=== PATIENT | male | born 1935 | race Caucasian/White ===

== ENCOUNTER 2017-03-20 14:09 | Observation (INO) | payer OTHER ==
[2017-03-20 14:38] VITALS: BMI 25.0
--- NOTE | 2017-03-20 16:02 | PDOC ---
History of Present Illness - General Chief Complaint: Syncope/Near Syncope Stated Complaint: SYNCOPY Time Seen by Provider: 03/20/17 15:05 History Source: Patient Exam Limitations: No Limitations - History of Present Illness Initial Comments: 03/20/17 16:00 81-year-old male sent in from transit authority police officer for evaluation of syncopal episode. As per patient Sunday night he got up to go to the bathroom and on his way back he is unsure what happened but found himself on the floor and when he awoke at an unknown time was unable to get up for approximately 2 hours. Patient states since he had no injury did not follow-up with his PCP noted to be go to a nearby ER. Patient today had went to his primary care physician who sent him to the transit authority police officer who then sent into the ER since patient is also on eliquis and has obvious facial injury. Patient currently has no complaints of headache, dizziness, visual changes, neck pain, chest pain, shortness of breath, abdominal pain, nausea or weakness. Presenting Symptoms: Dizziness, Syncope Timing/Duration: reports: resolved prior to arrival Associated Symptoms: Yes: Dizziness, Syncope Past History - Past Medical History Home Medications: Ambulatory Orders Apixaban [Eliquis] 5 mg PO DAILY 03/20/17 Atorvastatin Ca [Lipitor] 40 mg PO HS 03/20/17 Cholecalciferol (Vitamin D3) [Vitamin D3] 1,000 unit PO DAILY 03/20/17 Losartan Potassium [Cozaar] 100 mg PO DAILY 03/20/17 Metoprolol Tartrate 50 mg PO DAILY 03/20/17 HTN: Yes Hypercholesterolemia: Yes Other medical history: alcohol abuse/PAD - Immunization History Immunization Up to Date: Yes - Psycho/Social/Smoking Cessation Hx Suicidal Ideation: No Smoking History: Current every day smoker Number of Cigarettes Smoked Daily: 20 Information on smoking cessation initiated: No Hx Alcohol Use: Yes (4 daily) Substance Use Type: Alcohol Patient Lives Alone: Yes Lives with/in: lives alone Review of Systems - Review of Systems Able to Perform ROS?: Yes Constitutional: No: Symptoms Reported HEENTM: No: Symptoms Reported Respiratory: No: Symptoms reported Cardiac (ROS): Yes: Lightheadedness, Syncope ABD/GI: No: Symptoms Reported : No: Symptoms Reported Musculoskeletal: No: Symptoms Reported Integumentary: No: Symptoms Reported Neurological: Yes: Dizziness Endocrine: No: Symptoms Reported Hematologic/Lymphatic: Yes: Easy Bleeding *Physical Exam - Vital Signs Last Vital Signs Temp Pulse Resp BP Pulse Ox 98.1 F 64 18 162/84 98 03/20/17 14:29 03/20/17 14:29 03/20/17 14:29 03/20/17 14:29 03/20/17 14:29 - Physical Exam General Appearance: Yes: Nourished, Appropriately Dressed. No: Apparent Distress HEENT: positive: EOMI, RACHAEL (3 mm effie), TMs Normal, Pharynx Normal. negative: Pale Conjunctivae Neck: positive: Supple. negative: Tender, Decreased range of motion Respiratory/Chest: positive: Lungs Clear, Normal Breath Sounds. negative: Respiratory Distress, Accessory Muscle Use Cardiovascular: positive: Regular Rhythm, Regular Rate. negative: Murmur Gastrointestinal/Abdominal: positive: Soft. negative: Tenderness Musculoskeletal: negative: CVA Tenderness, Vertebral Tenderness Extremity: positive: Normal Capillary Refill. negative: Pedal Edema Integumentary: positive: Warm, Ecchymosis (mild without edema to the orbital floor of the right eye. ) Neurologic: positive: Normal Mood/Affect, Motor Strength 5/5 (ambulatory) Heart Score/ECG Review - ECG Intrepretation Comment:: 03/20/17 17:11 A. fib at 70 ED Treatment Course - LABORATORY CBC & Chemistry Diagram: 03/20/17 15:51 03/20/17 15:51 - ADDITIONAL ORDERS Additional order review: Laboratory Results 03/20/17 03/20/17 03/20/17 16:45 15:51 15:51 INR Sodium 141 Potassium 5.2 H Chloride 104 Carbon Dioxide 27 Anion Gap 10 BUN 17 D Creatinine 1.4 H D Creat Clearance w eGFR 48.89 Random Glucose 97 Calcium 10.0 Total Bilirubin 0.5 AST 30 D ALT 26 D Alkaline Phosphatase 77 Creatine Kinase 139 Troponin I < 0.02 Total Protein 8.2 Albumin 4.4 Urine Color Ltyellow Urine Appearance Clear Urine pH 7.0 Ur Specific [place] 1.012 Urine Protein Negative Urine Glucose (UA) 2+ H Urine Ketones Negative Urine Blood Negative Urine Nitrite Negative Urine Bilirubin Negative Urine Urobilinogen Negative Ur Leukocyte Esterase Negative Blood Type A POSITIVE Antibody Screen Negative 03/20/17 15:51 INR 1.03 Sodium Potassium Chloride Carbon Dioxide Anion Gap BUN Creatinine Creat Clearance w eGFR Random Glucose Calcium Total Bilirubin AST ALT Alkaline Phosphatase Creatine Kinase Troponin I Total Protein Albumin Urine Color Urine Appearance Urine pH Ur Specific [place] Urine Protein Urine Glucose (UA) Urine Ketones Urine Blood Urine Nitrite Urine Bilirubin Urine Urobilinogen Ur Leukocyte Esterase Blood Type Antibody Screen 03/20/17 15:51 RBC 4.27 MCV 93.5 MCHC 33.5 RDW 13.8 MPV 8.8 Neutrophils % 70.6 Lymphocytes % 16.5 Monocytes % 8.1 Eosinophils % 3.7 Basophils % 1.1 - RADIOLOGY Radiology Studies Ordered: Category Date Time Status FACIAL BONES CT W/O CONTRAST [CT] Stat CT Scan 03/20/17 15:[address] WITHOUT CONTRAST [CT] Stat CT Scan 03/20/17 15:35 Completed CHEST X-RAY PORTABLE* [RAD] Stat Radiology 03/20/17 15:36 Taken Medical Decision Making - Medical Decision Making 03/20/17 16:12 Status post syncopal episode which he attributes to his hydrochlorothiazide which he should not be taking but still continued to take it by accident once in a while and states is also an eliquis and has history of vertigo and takes meclizine as needed. Patient concerning for right orbital floor fracture versus intracranial bleed. Patient also ordered for cardiac workup secondary to syncopal episode in length that he was on the floor 2 nights ago. 03/20/17 16:56 CT shows no evidence of acute intracranial pathology with multiple chronic cerebral infarcts . Facial CT shows a nondisplaced subtle horizontal fracture along the posterior lateral wall of the right maxillary sinus with a small amount of hyperdense material suggestive of blood seen within the right maxillary sinus intermixed with incidental inflammatory mucosal thickening. Patient will be admitted to telemetry and will consult Dr. monreal and patient's PCP. 03/20/17 16:56 Laboratory Tests 03/20/17 03/20/17 15:51 15:51 Sodium 141 Potassium 5.2 H Chloride 104 Carbon Dioxide 27 Anion Gap 10 BUN 17 D Creatinine 1.4 H D Random Glucose 97 Calcium 10.0 Total Bilirubin 0.5 AST 30 D ALT 26 D Creatine Kinase 139 Troponin I < 0.02 Blood Type A POSITIVE 03/20/17 18:[address] Monreal and states patient has been doubled up on his hydrochlorothiazide as prescribed by his [facility] and himself. He states to admit to telemetry secondary to head injury currently on eliquis. Case also discussed with hospitalist Dr. bingham who accepted to service. *DC/Admit/Observation/Transfer Diagnosis at time of Disposition: On anticoagulant therapy Injury of head Qualifiers: Encounter type: initial encounter Qualified Code(s): S09.90XA - Unspecified injury of head, initial encounter - Discharge Dispostion Admit: Yes
[2017-03-20 16:29] LABS: BASOPHIL 1.1 % (0-2.0); EOSINOPHIL 3.7 % (0-4.5); MCH 31.3 pg (25.7-33.7); MCHC 33.5 g/dl (32.0-35.9); MEAN CELL VOLUME 93.5 fl (80-96); MEAN PLT VOLUME 8.8 fl (7.5-11.1); NEUTROPHILS 70.6 % (42.8-82.8); PLATELET COUNT 253 K/MM3 (134-434); RDW 13.8 % (11.9-15.9); WHITE BLOOD COUNT 10.1 K/mm3 (4.0-10.0)
[2017-03-20 16:34] LABS: ALBUMIN 4.4 g/dl (3.4-5.0); ANION GAP 10 (8-16); BILIRUBIN,TOTAL 0.5 mg/dL (0.2-1.0); CO2 27 mmol/L (21-32); COCKROFT - GAULT 41.17; CREATININE 1.4 mg/dL (0.7-1.3); GLUCOSE,RANDOM 97 mg/dL (74-106); SGPT/ALT 26 U/L (12-78); TOT PROT 8.2 g/dl (6.4-8.2)
[2017-03-20 16:36] LABS: ALK PHOS 77 U/L (45-117); TROPONIN I < 0.02 ng/ml (0.00-0.05)
[2017-03-20 16:53] LABS: SGOT/AST 30 U/L (15-37)
[2017-03-20 17:01] LABS: INR 1.03 (0.82-1.09); PROTHROMBIN TIME (PATIENT) 11.3 SEC (9.98-11.88)
[2017-03-20 17:21] LABS: URINE APPEARANCE CLEAR; URINE BILIRUBIN NEGATIVE (NEGATIVE); URINE BLOOD NEGATIVE (NEGATIVE); URINE COLOR LTYELLOW; URINE GLUCOSE (UA) 2+ (NEGATIVE); URINE KETONE NEGATIVE (NEGATIVE); URINE LEUK ESTERASE NEGATIVE (NEGATIVE); URINE NITRITE NEGATIVE (NEGATIVE); URINE PROTEIN NEGATIVE (NEGATIVE); URINE UROBILINOGEN NEGATIVE E.U./dl (0.2-1.0)
--- NOTE | 2017-03-20 19:38 | HP ---
CHIEF COMPLAINT: syncope PCP: [facility] Running Instructor: Dr. Monreal HISTORY OF PRESENT ILLNESS: 81 yr old man with hx of afib(on eliquis), HTN, HLD, hx of stroke, current smoker/ETOH abuse referred by for unwitnessed syncope on Sunday. Patient lives alone and recalls entertaining guests and escorting them out of his apartment around 5pm, next thing he remembers is waking up in the bathroom with blood covering his face. He felt dizzy when he first woke up, he made it to the living room and stayed on the couch for several hours, he notes it was sunday morning at this time. He saw PCP this morning who told him to see Dr. Monreal, Dr. Monreal reviewed his medications and found he was prescribed the same anti-HTN medications by two physicians and Mr. Duran was taking both. He has been able to eat/drink/breathe without difficulty since waking up sunday. denies falls, n/v, headache, visual changes, palpitations, epistaxis, cough, sob, falls, unsteady gait, bladder/bowel incontinence. Daughter notes pt has a history of ETOH abuse with post-drinking seizures and sustained a CVA in 2010 after drinking, it took the patient 2 months of rehab at [facility] to recover. daughter thinks the syncope may have been induced by alcohol, pt told her he was drinking with his guests and one of them may have covered him up. daughter also feels that he has developed progressive memory loss more frequently in the past year. ER course was notable for: (1) facial bone CT, head CT Recent Travel: none PAST MEDICAL HISTORY: Afib - on eliquis Vertigo HTN CVA HLD ETOH abuse - DT's, seizures, requiring icu and intubations PAST SURGICAL HISTORY: >30yr ago he had left hand surgery for broken finger Social History: Smoking: current everyday, started at age 11, 1pk/day Alcohol: ETOH, currently everyday drinker, 3-4ounces Drugs: denies Family History: mother with dementia Allergies No Known Allergies Allergy (Verified 03/20/17 19:04) HOME MEDICATIONS: Home Medications Medication Instructions Recorded Apixaban [Eliquis] 5 mg PO DAILY 03/20/17 Atorvastatin Ca [Lipitor] 40 mg PO HS 03/20/17 Cholecalciferol (Vitamin D3) 1,000 unit PO DAILY 03/20/17 [Vitamin D3] Losartan Potassium [Cozaar] 100 mg PO DAILY 03/20/17 Metoprolol Tartrate 50 mg PO DAILY 03/20/17 REVIEW OF SYSTEMS CONSTITUTIONAL: Absent: fever, chills, diaphoresis, generalized weakness, malaise, loss of appetite, weight change HEENT: Absent: rhinorrhea, nasal congestion, throat pain, throat swelling, difficulty swallowing, mouth swelling, ear pain, eye pain, visual changes CARDIOVASCULAR: Absent: chest pain, syncope, palpitations, irregular heart rate, lightheadedness , peripheral edema RESPIRATORY: Absent: cough, shortness of breath, dyspnea with exertion, orthopnea, wheezing, stridor, hemoptysis GASTROINTESTINAL: Absent: abdominal pain, abdominal distension, nausea, vomiting, diarrhea, constipation, melena, hematochezia GENITOURINARY: Absent: dysuria, frequency, urgency, hesitancy, hematuria, flank pain, genital pain MUSCULOSKELETAL: Absent: myalgia, arthralgia, joint swelling, back pain, neck pain SKIN: Absent: rash, itching, pallor HEMATOLOGIC/IMMUNOLOGIC: Absent: easy bleeding, easy bruising, lymphadenopathy, frequent infections ENDOCRINE: Absent: unexplained weight gain, unexplained weight loss, heat intolerance, cold intolerance NEUROLOGIC: Absent: headache, focal weakness or paresthesias, dizziness, unsteady gait, seizure, mental status changes, bladder or bowel incontinence PHYSICAL EXAMINATION Vital Signs - 24 hr 03/20/17 19:05 Temperature 98.1 F Pulse Rate [ 79 Apical] Respiratory 18 Rate Blood Pressure 170/77 [Right Arm] O2 Sat by Pulse 99 Oximetry (%) GENERAL: Awake, alert, and fully oriented, in no acute distress. HEAD: NC, left temporal ecchymosis with tenderness. EYES: Pupils equal, round and reactive to light, extraocular movements intact, sclera anicteric, conjunctiva clear. No lid lag. left periorbital ecchymosis. mild ttp of left maxillary sinus. EARS, NOSE, THROAT: Ears normal, nares patent, oropharynx clear without exudates. Moist mucous membranes. NECK: Normal range of motion, supple without lymphadenopathy, JVD, or masses. LUNGS: Breath sounds equal, clear to auscultation bilaterally. No wheezes, and no crackles. No accessory muscle use. HEART: irregularly irregular pulse, systolic murmur. ABDOMEN: Soft, nontender, not distended, normoactive bowel sounds, no guarding, no rebound, no masses. MUSCULOSKELETAL: Normal range of motion at all joints. No bony deformities or tenderness. No CVA tenderness. tenderness to palpation in left shoulder UPPER EXTREMITIES: 2+ pulses, warm, well-perfused. No cyanosis. No clubbing. No peripheral edema. LOWER EXTREMITIES: 2+ pulses, warm, well-perfused. No calf tenderness. No peripheral edema. NEUROLOGICAL: Cranial nerves II-XII intact. Normal speech. Normal gait. PSYCHIATRIC: Cooperative. Good eye contact. Appropriate mood and affect. SKIN: Warm, dry, normal turgor, no rashes or lesions noted, normal capillary refill. Home Medications Medication Instructions Recorded Apixaban [Eliquis] 5 mg PO DAILY 03/20/17 Atorvastatin Ca [Lipitor] 40 mg PO HS 03/20/17 Cholecalciferol (Vitamin D3) 1,000 unit PO DAILY 03/20/17 [Vitamin D3] Losartan Potassium [Cozaar] 100 mg PO DAILY 03/20/17 Metoprolol Tartrate 50 mg PO DAILY 03/20/17 ASSESSMENT/PLAN: 81 yr old man with hx of HTN, HLD, etoh abuse, afib referred by tassel making machine operator for syncope placed under observation in telemetry. #Possible unwitnessed syncope - overdose of anti-HTNive's vs etoh use vs orthostatic/dehydration - >24hrs since fall, Head Ct without acute hemorrhage/edema/midline shift, patient exhibits no focal neurological deficits - duplicate medications were disposed by Dr. Monreal in his office - was told to continue eliquis by Dr. monreal - orthostatic bp #Elevated Cr likely due to po intake vs overdose of diuretics - IVF 1/ NS @100ml/hr - repeat BMP #Right maxillary fracture - f/u as outpatient with ENT -- has apparent subtle horizontal nondisplaced fracture line along the posterior lateral wall of the right maxillary sinus. A small amount of hyperdense material suggestive of blood is seen within the right maxillary sinus intermixed with incidental mild to moderate inflammatory mucosal thickening. #Afib - rate controlled - eliquis 5mg po 1 tablet qd #HTN - losartan 100mg po qd - hold while receiving IVF - metoprolol succ 50mg po qd #HLD - lipitor 40mg po HS #Smoking cessation - patient not prepared to quit at this time - counseling provided #ETOH abuse - CIWA 0, monitor for s/s of withdrawal - thiamine 100mg po qd and folate po 1 tablet po daily #Diet- low sodium #DVT - on eliquis #Dispo - outpt follow-up with tassel making machine operator, provide referral to neurologist for evaluation of memory loss, f/u with ENT for maxillary fracture and maxillary sinus collection. Visit type - Emergency Visit Emergency Visit: Yes ED Registration Date: 03/20/17 Care time: The patient presented to the Emergency Department on the above date and was hospitalized for further evaluation of their emergent condition. - New Patient This patient is new to me today: Yes Date on this admission: 03/20/17 - Critical Care Critical Care patient: No
--- NOTE | 2017-03-20 20:09 | PN ---
<Serge Zaragoza - Last Filed: 03/20/17 23:28> Teaching Attending Note ATTENDING PHYSICIAN STATEMENT I saw and evaluated the patient. I reviewed the resident's note and discussed the case with the resident. I agree with the resident's findings and plan as documented. SUBJECTIVE: 81-year-old male thats presents to the ED after syncopal episode at home approx 3 days ago. Patient has no recollection of event and remembers waking up on the floor. He denies palpitations, chest pain, or weakness. He has been accidently taking double the dose of diuretics. Past medical history: HLD, HTN, atrial fibrillation, vertigo Social history: EtOH abuse Surgical history: left finger surgery >30 years ago Allergies: None Medications: Home Medication List Medication Instructions Recorded Confirmed Type Apixaban [Eliquis] 5 mg PO DAILY 03/20/17 03/20/17 History Atorvastatin Ca [Lipitor] 40 mg PO HS 03/20/17 03/20/17 History Cholecalciferol (Vitamin D3) 1,000 unit PO DAILY 03/20/17 03/20/17 History [Vitamin D3] Losartan Potassium [Cozaar] 100 mg PO DAILY 03/20/17 03/20/17 History Metoprolol Tartrate 50 mg PO DAILY 03/20/17 03/20/17 History Active Medications Generic Name Dose Route Start Last Admin Trade Name Freq PRN Reason Stop Dose Admin Apixaban 5 mg 03/21/17 10:00 Eliquis - PO DAILY [facility] Atorvastatin Calcium 40 mg 03/20/17 22:00 03/20/17 21:59 Lipitor - PO 40 mg HS [facility] Administration Cholecalciferol 1,000 unit 03/21/17 10:00 Vitamin D3 - PO DAILY [facility]ERIS[facility] Folic Acid 1 mg 03/21/17 10:00 Folic Acid - PO DAILY [facility] Sodium Chloride 1,000 mls @ 100 mls/hr 03/20/17 23:30 1/2 Normal Saline IV ASDIR NERISSA Losartan Potassium 100 mg 03/21/17 10:00 Cozaar - PO DAILY [facility] Metoprolol Tartrate 50 mg 03/21/17 10:00 Lopressor - PO DAILY [facility] Thiamine HCl 100 mg 03/21/17 10:00 Vitamin B1 - PO DAILY [facility] Review of Systems: CONSTITUTIONAL: Absent: fever, chills, diaphoresis, generalized weakness, malaise, loss of appetite HEENT: Absent: rhinorrhea, nasal congestion, throat pain, throat swelling, difficulty swallowing, mouth swelling, ear pain, eye pain, visual Changes CARDIOVASCULAR: Present: As mentioned in HPI Absent: chest pain RESPIRATORY: Absent: cough, shortness of breath, dyspnea with exertion, orthopnea, wheezing, stridor, hemoptysis GASTROINTESTINAL: Absent: abdominal pain, abdominal distension, nausea, vomiting, diarrhea, constipation, melena, hematochezia GENITOURINARY: Absent: dysuria, frequency, urgency, hesitancy, hematuria, flank pain, genital pain MUSCULOSKELETAL: Absent: myalgia, arthralgia, joint swelling SKIN: Absent: rash, itching, pallor HEMATOLOGIC/IMMUNOLOGIC: Present: Easy bruising Absent: easy bleeding, lymphadenopathy, frequent infections ENDOCRINE: Absent: unexplained weight gain, unexplained weight loss, heat intolerance, cold intolerance NEUROLOGIC: Absent: headache, focal weakness or paresthesias, dizziness, unsteady gait, seizure, mental status changes, bladder or bowel incontinence PSYCHIATRIC: Absent: anxiety, depression, suicidal or homicidal ideation, hallucinations. OBJECTIVE: Vital Signs: Last Vital Signs Temp Pulse Resp BP Pulse Ox 98.1 F 79 18 170/77 99 03/20/17 19:05 03/20/17 19:05 03/20/17 19:05 03/20/17 19:05 03/20/17 19:05 Physical Exam: GENERAL: Awake, alert, and fully oriented, in no acute distress HEENT: (+) Atraumatic. PERRLA, EOMI. Moist mucosa. No JVD Left periorbital ecchymosis. Left maxillary sinus mild tenderness on palpation LUNGS: No distress, speaks full sentences, clear to auscultation bilaterally HEART: (+) Regular rate. Systolic murmur. No rubs or gallops, peripheral pulses normal and equal bilaterally. ABDOMEN: Soft, nontender, normoactive bowel sounds. No guarding, no rebound. No masses EXTREMITIES: Normal inspection, Normal range of motion, no edema. No clubbing or cyanosis. NEUROLOGICAL: Cranial nerves II through XII grossly intact. Normal speech, normal gait, no focal sensorimotor deficits SKIN: Warm, Dry, normal turgor, no rashes or lesions noted. Labs: CBCD WBC 10.1 K/mm3 (4.0-10.0) H 03/20/17 15:51 RBC 4.27 M/mm3 (4.00-5.60) 03/20/17 15:51 Hgb 13.3 GM/dL (11.7-16.9) 03/20/17 15:51 Hct 39.9 % (35.4-49) 03/20/17 15:51 MCV 93.5 fl (80-96) 03/20/17 15:51 MCHC 33.5 g/dl (32.0-35.9) 03/20/17 15:51 RDW 13.8 % (11.9-15.9) 03/20/17 15:51 Plt Count 253 K/MM3 (134-434) 03/20/17 15:51 MPV 8.8 fl (7.5-11.1) 03/20/17 15:51 CMP Sodium 141 mmol/L (136-145) 03/20/17 15:51 Potassium 5.2 mmol/L (3.5-5.1) H 03/20/17 15:51 Chloride 104 mmol/L (98-107) 03/20/17 15:51 Carbon Dioxide 27 mmol/L (21-32) 03/20/17 15:51 Anion Gap 10 (8-16) 03/20/17 15:51 BUN 17 mg/dL (7-18) D 03/20/17 15:51 Creatinine 1.4 mg/dL (0.7-1.3) H D 03/20/17 15:51 Creat Clearance w eGFR 48.89 (>60) 03/20/17 15:51 Calcium 10.0 mg/dL (8.5-10.1) 03/20/17 15:51 Total Bilirubin 0.5 mg/dL (0.2-1.0) 03/20/17 15:51 AST 30 U/L (15-37) D 03/20/17 15:51 ALT 26 U/L (12-78) D 03/20/17 15:51 Alkaline Phosphatase 77 U/L (45-117) 03/20/17 15:51 Total Protein 8.2 g/dl (6.4-8.2) 03/20/17 15:51 Albumin 4.4 g/dl (3.4-5.0) 03/20/17 15:51 Imagin. ECG atrial fib at rate of 68 2. EXAM#: TYPE/EXAM: RESULT: [id number] CT/HEAD CT WITHOUT CONTRAST Cranial CT without contrast Clinical information: status post fall There is no CT evidence of intracranial injury or calvarial fracture. Small left frontal scalp hematoma. A moderate chronic cortical infarct is noted along the right inferior temporal lobe posteriorly. Several chronic bilateral basal ganglia infarcts are seen. There is moderate periventricular and subcortical microvascular ischemic gliosis. No obvious mass lesion is seen. There is no extra-axial fluid collection. No obstructive hydrocephalus is noted. Impression: No CT evidence of acute intracranial pathology. Multiple chronic cerebral infarcts as discussed above. Reported By: Simone Sutherland MD 03/20/17 1641 3. EXAM#: TYPE/EXAM: RESULT: [id number] CT/FACIAL BONES CT W/O CONTRAST Facial bone CT without contrast Clinical information: status post fall There there is an apparent subtle horizontal nondisplaced fracture line along the posterior lateral wall of the right maxillary sinus. A small amount of hyperdense material suggestive of blood is seen within the right maxillary sinus intermixed with incidental mild to moderate inflammatory mucosal thickening. The remaining maxillofacial and orbital structures appear intact. Periodontal disease. Impression: As discussed above Reported By: Simone Sutherland MD [id number] 4. Chest X-ray. Impression: No official read. ASSESSMENT AND PLAN: 1. Syncopal episode- likely secondary to dehydration/orthostatic possibility of seizure or cardiogenic cause such as arrhythmia cannot be excluded without further monitoring. - Telemetry - Discontinue diuretics - IVF - Serial neurological checks 2. Acute renal insufficiency- likely induced by diuretics. - IVF - Repeat bmp - Hold diuretics 3. History of atrial fibrillation- stable and rate is controlled. - Continue with Eliquis 4. HTN- suboptimal control - Continue home medications - Monitor blood pressure 5. DVT PPX- appropriately anticoagulated. On eliquis. 6. Observation Place under telemetry observation. Documentation prepared by Serge Zaragoza, acting as manager medical affairs for Dr. Israel MD. <Darshan Wood - Last Filed: 03/21/17 00:48> Teaching Attending Note Name of Resident: Klarissa Tan
[2017-03-20] MEDS ORDERED: ATORVASTATIN CA 40 MG TABLET (FP) PO SCH (22:00)
[2017-03-20] MEDS ORDERED: SODIUM CHLORIDE 0.45% 1,000 ML IV SCH (23:30)
[2017-03-20] MEDS ORDERED: METOPROLOL SUCCINATE 50 MG TAB.SR.24H (FP) PO ONE (23:57)
[2017-03-21 06:21] VITALS: BP 149/69; PULSE 51; TEMP 98.7
[2017-03-21 09:00] LABS: COCKROFT - GAULT 44.34; CREATININE 1.3 mg/dL (0.7-1.3)
--- NOTE | 2017-03-21 09:31 | CON.CARD ---
Consult Consult Specialty:: Cardiology Referred by:: Hospitalist Medicine Reason for Consultation:: Syncope - History of Present Illness Chief Complaint: Down on floor with facial trauma History of Present Illness: 81 yr old man with hx of paroxysmal afib (on eliquis), HTN, HLD, hx of stroke, current smoker/ETOH abuse referred to ED for unwitnessed syncope on Sunday. He found himself on floor with facial trauma, cannot recall prodromal symptoms. I saw him in office, reviewed his medications and found that he was inadvertently taking excessive antihypertensive agents. Pt has a history of ETOH abuse with post-drinking seizures and sustained a CVA in 2010 after drinking, it took the patient 2 months of rehab at [facility] to recover. Daughter thinks the syncope may have been induced by alcohol, pt told her he was drinking with his guests and one of them may have covered him up. daughter also feels that he has developed progressive memory loss more frequently in the past year. He is currently ambulating without symptoms, no events on telemetry. ER course was notable for: (1) facial bone CT, head CT Recent Travel: none PAST MEDICAL HISTORY: Afib - on eliquis Vertigo HTN CVA HLD ETOH abuse - DT's, seizures, requiring icu and intubations PAST SURGICAL HISTORY: >30yr ago he had left hand surgery for broken finger Social History: Smoking: current everyday, started at age 11, 1pk/day Alcohol: ETOH, currently everyday drinker, 3-4ounces Drugs: denies Family History: mother with dementia Allergies No Known Allergies Allergy (Verified 03/20/17 19:04) - History Source History Provided By: Patient Limitations to Obtaining History: No Limitations - Alcohol/Substance Use Hx Alcohol Use: Yes (4 daily) - Smoking History Smoking history: Current every day smoker Have you smoked in the past 12 months: Yes Aproximately how many cigarettes per day: 20 Home Medications - Allergies Allergies/Adverse Reactions: Allergies Allergy/AdvReac Type Severity Reaction Status Date / Time No Known Allergies Allergy Verified 03/20/17 19:04 - Home Medications Home Medications: Ambulatory Orders Apixaban [Eliquis] 5 mg PO DAILY 03/20/17 Atorvastatin Ca [Lipitor] 40 mg PO HS 03/20/17 Cholecalciferol (Vitamin D3) [Vitamin D3] 1,000 unit PO DAILY 03/20/17 Losartan Potassium [Cozaar] 100 mg PO DAILY 03/20/17 Metoprolol Tartrate 50 mg PO DAILY 03/20/17 Review of Systems - Review of Systems Neurological: reports: Syncope Vital Signs: Vital Signs Temperature 98.7 F 03/21/17 04:35 Pulse Rate 51 L 03/21/17 04:35 Respiratory Rate 18 03/21/17 04:35 Blood Pressure 149/69 03/21/17 04:35 O2 Sat by Pulse Oximetry (%) 99 03/20/17 20:13 Constitutional: Yes: No Distress, Calm Neck: Yes: Supple Respiratory: Yes: Regular Gastrointestinal: Yes: Normal Bowel Sounds, Soft Cardiovascular: Yes: Regular Rate and Rhythm JVD: No Carotid Bruit: No Heart Sounds: Yes: S1, S2 Murmur: Yes: Systolic Murmur, Grade 1 Edema: No - Other Data Labs, Other Data: INR, PTT INR 1.03 (0.82-1.09) 03/20/17 15:51 EKG: Afib, tele shows SR without pauses Imaging - Results Chest X-ray: Report Reviewed (NAD) Cat Scan: Report Reviewed (HCT: No bleed, right maxillary sinus fracture) Problem List - Problems (1) Head injury Code(s): S09.90XA - UNSPECIFIED INJURY OF HEAD, INITIAL ENCOUNTER Qualifiers: Encounter type: initial encounter Qualified Code(s): S09.90XA - Unspecified injury of head, initial encounter (2) On anticoagulant therapy Code(s): Z79.01 - 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 ANTICOAGULANTS (3) Syncope Code(s): R55 - SYNCOPE AND COLLAPSE Qualifiers: Syncope type: vasovagal syncope Qualified Code(s): R55 - Syncope and collapse (4) Hypertensive cardiomyopathy Code(s): I11.9 - HYPERTENSIVE HEART DISEASE WITHOUT HEART FAILURE I42.9 - CARDIOMYOPATHY, UNSPECIFIED Qualifiers: Heart failure presence: without heart failure Qualified Code(s): I11.9 - Hypertensive heart disease without heart failure (5) Hyperlipidemia Code(s): E78.5 - HYPERLIPIDEMIA, UNSPECIFIED Qualifiers: Hyperlipidemia type: pure hypercholesterolemia Qualified Code(s): E78.00 - Pure hypercholesterolemia, unspecified; E78.0 - Pure hypercholesterolemia (6) Cerebrovascular disease Code(s): I67.9 - CEREBROVASCULAR DISEASE, UNSPECIFIED (7) Paroxysmal atrial fibrillation Code(s): I48.0 - PAROXYSMAL ATRIAL FIBRILLATION (8) Alcohol abuse Code(s): F10.10 - ALCOHOL ABUSE, UNCOMPLICATED Assessment/Plan 1. Possible unwitnessed syncope without events on telemetry, possible orthostatic effects from excessive antihypertensive agents and alcohol 2. Acute kidney injury pre-renal improving 3. Right maxillary fracture 4. Paroxysmal atrial fibrillation 5. HTN/HCVD 6. Hyperlipidemia 7. Tobacco abuse 8. ETOH abuse P:1. Hydration with monitor renal fxn and electrolytes, orthostatic vital signs unrevealing 2. Continue Eliquis 5 bid, losartan 100 qd, Toprol XL 50 qd, Lipitor 40 qhs 3. Observe for signs of withdrawal, advised on smoking cessation, d/c planning 4. Thank you for consultative opportunity
[2017-03-21] MEDS ORDERED: METOPROLOL TARTRATE 50 MG TABLET (FP) PO SCH (10:00)
[2017-03-21] MEDS ORDERED: APIXABAN 5 MG TABLET PO SCH ×2 (10:00)
[2017-03-21] MEDS ORDERED: THIAMINE HCL 100 MG TABLET (FP) PO SCH (10:00)
[2017-03-21] MEDS ORDERED: LOSARTAN POTASSIUM 50 MG TABLET (FP) PO SCH (10:00)
[2017-03-21] MEDS ORDERED: FOLIC ACID 1 MG TABLET (FP) PO SCH (10:00)
[2017-03-21] MEDS ORDERED: CHOLECALCIFEROL (VITAMIN D3) 1,000 UNIT TABLET (FP) PO SCH (10:00)
[2017-03-21] MEDS ORDERED: METOPROLOL SUCCINATE 50 MG TAB.SR.24H (FP) PO SCH (10:00)
--- NOTE | 2017-03-21 13:56 | EKG ---
Test Reason : Blood Pressure : / mmHG Vent. Rate : 068 BPM Atrial Rate : 068 BPM P-R Int : 000 ms QRS Dur : 080 ms QT Int : 408 ms P-R-T Axes : 000 053 071 degrees QTc Int : 433 ms ATRIAL FIBRILLATION ABNORMAL ECG NO PREVIOUS ECGS AVAILABLE Confirmed by GINGER VILLARREAL, LEROY ([id number]) on 03/21/2017 1:56:27 PM Referred By: Confirmed By:LEROY MILES MD
--- NOTE | 2017-03-21 14:23 | DS ---
Physical Examination Vital Signs: Vital Signs Temperature 98.7 F 03/21/17 04:35 Pulse Rate 51 L 03/21/17 04:35 Respiratory Rate 18 03/21/17 04:35 Blood Pressure 149/69 03/21/17 04:35 O2 Sat by Pulse Oximetry (%) 99 03/20/17 20:13 Findings/Remarks: This is a 81 year old male with PMHx of afib(on eliquis), HTN, HLD, hx of stroke , current smoker/ETOH abuse referred by for unwitnessed syncope on Sunday. Patient lives alone and recalls entertaining guests and escorting them out of his apartment around 5pm, next thing he remembers is waking up in the bathroom with blood covering his face. He felt dizzy when he first woke up, he made it to the living room and stayed on the couch for several hours, he notes it was sunday morning at this time. He saw PCP this morning who told him to see Dr. Sears, Dr. Sears reviewed his medications and found he was prescribed the same anti-HTN medications by two physicians and Mr. Duran was taking both. He has been able to eat/drink/breathe without difficulty since waking up sunday. denies falls, n/v, headache, visual changes, palpitations, epistaxis, cough, sob, falls, unsteady gait, bladder/bowel incontinence. Daughter notes pt has a history of ETOH abuse with post-drinking seizures and sustained a CVA in 2010 after drinking, it took the patient 2 months of rehab at [facility] to recover. daughter thinks the syncope may have been induced by alcohol, pt told her he was drinking with his guests and one of them may have covered him up. daughter also feels that he has developed progressive memory loss more frequently in the past year. Orthostatics were performed and the patient was not orthostatic. 1. Syncopal episode- likely secondary to dehydration/orthostatic - Telemetry - Discontinue diuretics - IVF 2. Acute renal insufficiency- likely induced by diuretics. - After IVF it resolved 3. History of atrial fibrillation- stable and rate is controlled. - Continue with Eliquis 4. HTN- suboptimal control - Continue home medications - Monitor blood pressure Per cardiology, continue Eliquis 5mg po bid, losartan 100mg po daily, Toprol XL 50mg po daily, Lipitor 40mg po daily. Please return to the ED with new, persistent, or worsening symptoms. Labs: CBC, BMP 03/21/17 07:50 Discharge Summary Reason For Visit: ON ANTICOAGULANT THERAPY; INJURY OF HEAD Current Active Problems Alcohol abuse (Acute) Cerebrovascular disease (Acute) Head injury (Acute) Hyperlipidemia (Acute) Hypertensive cardiomyopathy (Acute) On anticoagulant therapy (Acute) Paroxysmal atrial fibrillation (Acute) Syncope (Acute) Condition: Improved - Instructions Diet, Activity, Other Instructions: Please return to the ED with new, persistent, or worsening symptoms. Please follow-up with providers as indicated. Referrals: Mando Sears MD [Staff Physician] - (Please follow-up with cardiology within 1 week for further management of your syncopal episodes) Disposition: HOME - Home Medications Comprehensive Discharge Medication List: Ambulatory Orders Apixaban [Eliquis] 5 mg PO DAILY 03/20/17 Atorvastatin Ca [Lipitor] 40 mg PO HS 03/20/17 Cholecalciferol (Vitamin D3) [Vitamin D3] 1,000 unit PO DAILY 03/20/17 Losartan Potassium [Cozaar] 100 mg PO DAILY 03/20/17 Folic Acid - 1 mg PO DAILY #30 tablet 03/21/17 Metoprolol Succinate [Toprol XL -] 50 mg PO DAILY #30 tab 03/21/17 Thiamine HCl [Vitamin B1 -] 100 mg PO DAILY #30 tablet 03/21/17 This patient is new to me today: Yes Date on this admission: 03/21/17 Emergency Visit: Yes ED Registration Date: 03/20/17 Care time: The patient presented to the Emergency Department on the above date and was hospitalized for further evaluation of their emergent condition. Critical Care patient: No - Discharge Referral Referred to [facility] Med [facility].C[facility] No
== END 2017-03-21 16:49 | disposition home or self-care (01) ==
LOC: JER 14:09 → JERBED 18:09 → J4W 20:55
PROVIDERS: ADMIT Internal Medicine; ATTEND Registered Nurse
PROC: 3E0337Z Introduction of Electrolytic and Water Balance Substance into Peripheral Vein, Percutaneous Approach (ICD-10-PCS; principal; 2017-03-20)
DX: S09.90XA Unspecified injury of head, initial encounter (principal); Z79.01 Long term (current) use of anticoagulants; I42.9 Cardiomyopathy, unspecified; I11.9 Hypertensive heart disease without heart failure; I48.0 Paroxysmal atrial fibrillation; I67.9 Cerebrovascular disease, unspecified; Z86.73 Personal history of transient ischemic attack (TIA), and cerebral infarction without residual deficits; E78.5 Hyperlipidemia, unspecified; F10.10 Alcohol abuse, uncomplicated; R79.89 Other specified abnormal findings of blood chemistry; S02.40CA Maxillary fracture, right side, initial encounter for closed fracture; W18.39XA Other fall on same level, initial encounter; Y93.01 Activity, walking, marching and hiking; Y92.002 Bathroom of unspecified non-institutional (private) residence as the place of occurrence of the external cause; N28.9 Disorder of kidney and ureter, unspecified
CPT/HCPCS: 36415; 70450-TC; 70486-TC; 71010-TC; 80048; 80053; 81003; 82550; 84484; 85025; 85610; 86850; 86900; 86901; 93005; 93010; 93306-TC; 93880-TC; 99285-25; G0378